=== PATIENT | female | born 1970 | race Hispanic/Latino ===

== ENCOUNTER 2021-02-25 02:29 | Emergency (ER) | payer OTHER, SELFPAY ==
[~2021-02-25 02:29] MED LIST: ACET1TAB12 PO; NO HOME MEDS
[2021-02-25] MEDS ORDERED: DIPHENHYDRAMINE HCL 25 MG CAPSULE ONE (03:26)
== END 2021-02-25 03:39 | disposition home or self-care (01) ==
LOC: EDH 02:29
DX: R00.2 Palpitations (principal)
CPT/HCPCS: 93005; 99283; Q0163